=== PATIENT | male | born 1995 | race Caucasian/White ===

== ENCOUNTER 2017-08-06 19:28 | Emergency (ER) | payer BC, OTHER ==
--- NOTE | 2017-08-06 19:37 | PDOC ---
History of Present Illness - History of Present Illness Initial Comments: 08/06/17 20:04 22 y/o M with no PMHx presents to the ED with a left thumb bleeding for an hour. 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 Patient reports putting pressure at the site and wrapping it in gauze, but the bleeding hasnt stopped. Patient has no other complaints. PAST MEDICAL HISTORY: no significant history PAST SURGICAL HISTORY: no significant history FAMILY HISTORY: no pertinent history SOCIAL HISTORY: Pt lives with family and is employed. MEDICATIONS: reviewed ALLERGIES: As per nursing notes Review of Systems: General: No fevers or chills, no weakness, no weight loss HEENT: No change in vision. No sore throat,. No ear pain CardioVascular: No chest pain or shortness of breath Respiratory: No cough, or wheezing. Gastrointestinal: no nausea, vomiting, diarrhea or constipation, No rectal bleeding Genitourinary: No dysuria, hematuria, or frequency Musculoskeletal: No joint or muscle pain or swelling Neurologic: No headache, vertigo, dizziness or loss of consciousness Psychiatric: No depression Skin: (+) left thumb skin avulsion. No rashes or easy bruising Endocrine: No increased thirst or abnormal weight change Allergic: No skin or latex allergy All other systems reviewed and normal Physical Exam: GENERAL: The patient is awake, alert, and fully oriented, in no acute distress. HEAD: Normal with no signs of trauma. EYES: Pupils equal, round and reactive to light, extraocular movements intact, sclera anicteric, conjunctiva clear. EXTREMITIES: Normal range of motion, no edema. NEUROLOGICAL: Normal speech, normal gait. PSYCH: Normal mood, normal affect. SKIN: Approximately avulsion of the skin of the tip of the thumb. Warm, Dry, normal turgor, no rashes or lesions noted. <Mindi Camacho - Last Filed: 08/06/17 20:04> - General History Source: Patient Exam Limitations: No Limitations - History of Present Illness Initial Comments: 08/06/17 22:08 A portion of this note was documented by scribe services under my direction. I have reviewed the details of the note, within reason, and agree with the documentation. The case summary and management plan written by me. Assessment and plan: This is a 22-year-old male who comes in status post avulsion of the tip of his thumb when he was cutting something and accidentally cut the tip of his thumb. Area was still bleeding so Surgicel and a bulky dressing were applied to the thumb. Patient's tetanus was up to date. Patient discharged will follow-up with primary care doctor as needed <Areli Concepcion I - Last Filed: 08/06/17 22:10> - General Chief Complaint: Laceration Stated Complaint: LH 1ST FINGER LAC Time Seen by Provider: 08/06/17 19:37 Past History <Mindi Camacho - Last Filed: 08/06/17 20:04> - Past Medical History Other medical history: DENIES - Immunization History Immunization Up to Date: Yes - Suicide/Smoking/Psychosocial Hx Smoking History: Current some day smoker Have you smoked in the past 12 months: Yes Number of Cigarettes Smoked Daily: 2 Cigars Per Day: 0 Information on smoking cessation initiated: Yes 'Breaking Loose' booklet given: 12/14/15 Hx Alcohol Use: Yes Drug/Substance Use Hx: No Substance Use Type: Alcohol, Marijuana <Areli Concepcion I - Last Filed: 08/06/17 22:10> - Past Medical History Allergies/Adverse Reactions: Allergies Allergy/AdvReac Type Severity Reaction Status Date / Time No Known Allergies Allergy Verified 12/14/15 12:15 Home Medications: Ambulatory Orders NK [No Known Home Medication] 08/06/17 *Physical Exam - Vital Signs Last Vital Signs Temp Pulse Resp BP Pulse Ox 99 F 83 16 130/87 97 08/06/17 19:30 08/06/17 19:30 08/06/17 19:30 08/06/17 19:30 08/06/17 19:30 <Mindi Camacho - Last Filed: 08/06/17 20:04> *DC/Admit/Observation/Transfer - Attestations Scribe Attestion: 08/06/17 20:04 Documentation prepared by Mindi Camacho, acting as medical receptionist biller for Areli Concepcion MD. <Mindi Camacho - Last Filed: 08/06/17 20:04> - Discharge Dispostion Admit: No <Areli Concepcion I - Last Filed: 08/06/17 22:10> Diagnosis at time of Disposition: Thumb laceration Qualifiers: Damage to nail status: without damage Foreign body presence: without foreign body Laterality: left - Discharge Dispostion Disposition: HOME Condition at time of disposition: Stable - Patient Instructions Additional Instructions: The the bulky dressing in place until tomorrow morning. By morning he can remove the bulky dressing applied some bacitracin to the tip of the finger and a Band-Aid. Keep the finger dry for 72 hours wear gloves at work do not get it wet. Return to the emergency department immediately with ANY new, persistent or worsening symptoms. Continue any medications as previously prescribed by your physician. You should follow up with your primary doctor as soon as possible regarding today's emergency department visit. . Please make sure your doctor reviews the results of your emergency evaluation. Thank you for coming to the Emergency Department today for your care. It was a pleasure to see you today. Please note that your evaluation is INCOMPLETE until you follow-up with your doctor.
[2017-08-06 19:50] VITALS: BP 130/87; PULSE 83; TEMP 99; BMI 20.3
== END 2017-08-06 20:12 | disposition home or self-care (01) ==
LOC: FER 19:28
DX: S61.012A Laceration without foreign body of left thumb without damage to nail, initial encounter (principal); W26.0XXA Contact with knife, initial encounter; Y93.G1 Activity, food preparation and clean up; Y92.511 Restaurant or cafe as the place of occurrence of the external cause; Y99.0 Civilian activity done for income or pay; F17.210 Nicotine dependence, cigarettes, uncomplicated
CPT/HCPCS: 99282-25

== ENCOUNTER 2017-08-31 00:48 | Inpatient (IN) | payer BC, OTHER ==
--- NOTE | 2017-08-31 01:12 | HP ---
COWS - Scale Resting Pulse: 1= [place] 81-100 Sweatin=Flushed/Facial Moisture Restless Observation: 1= Difficult to Sit Still Pupil Size: 1= Pupils >than Normal Bone or Joint Aches: 2= Severe Diffuse Aches Runny Nose/ Eye Tearin= Runny Nose/Eyes GI Upset > 30mins: 2= Nausea/Diarrhea Tremor Observation: 2= Slight Tremor Visible Yawning Observation: 1= 1-2x During Session Anxiety or Irritability: 4=Extreme Anxiety Goose Flesh Skin: 0=Smooth Skin COWS Score: 18 CIWA Score - CIWA Score Nausea/Vomitin-No Nausea/No Vomiting Muscle Tremors: 4-Moderate,w/Arms Extend Anxiety: 4-Mod. Anxious/Guarded Agitation: 3 Paroxysmal Sweats: 3 Orientation: 0-Oriented Tacttile Disturbances: 3-Moderate Itch/Numb/Burn Auditory Disturbances: 0-None Visual Disturbances: 0-None Headache: 0-None Present CIWA-Ar Total Score: 17 Admission ROS BHS - HPI Chief Complaint: Alcohol and opoid withdrawal symptoms Allergies/Adverse Reactions: Allergies Allergy/AdvReac Type Severity Reaction Status Date / Time No Known Allergies Allergy Verified 08/31/17 01:06 History of Present Illness: 22 years old male with long history of alcohol and opioid dependence is admitted for detox. He reports longest clean time of 5 months and that his admission is mandated by [facility]. This is his first drug treatment. Exam Limitations: No Limitations - Ebola screening Have you traveled outside of the country in the last 21 days: No Have you had contact with anyone from an Ebola affected area: No Have you been sick,other than usual withdrawal symptoms: No Do you have a fever: No - Review of Systems Constitutional: Chills, Loss of Appetite, Changes in sleep, Unintentional Wgt. Loss EENT: reports: Nose Congestion Respiratory: reports: Shortness of Breath Cardiac: reports: No Symptoms Reported GI: reports: Diarrhea, Nausea, Poor Appetite, Poor Fluid Intake : reports: Frequency Musculoskeletal: reports: No Symptoms Reported Integumentary: reports: Other (superficial abrasions to both hands) Neuro: reports: No Symptoms reported Endocrine: reports: No Symptoms Reported Hematology: reports: No Symptoms Reported Psychiatric: reports: Orientated x3, Anxious, Depressed Other Systems: Reviewed and Negative Patient History - Patient Medical History Hx Anemia: No Hx Asthma: No Hx Chronic Obstructive Pulmonary Disease (COPD): No Hx Cancer: No Hx Cardiac Disorders: No Hx Congestive Heart Failure: No Hx Hypertension: No Hx Hypercholesterolemia: No Hx Pacemaker: No HX Cerebrovascular Accident: No Hx Seizures: No Hx Dementia: No Hx Diabetes: No Hx Gastrointestinal Disorders: No Hx Liver Disease: No Hx Genitourinary Disorders: No Hx Sexually Transmitted Disorders: No Hx Renal Disease (ESRD): No Hx Thyroid Disease: No Hx Human Immunodeficiency Virus (HIV): No Hx Hepatitis C: No Hx Depression: Yes (No treatment) Hx Suicide Attempt: No (presently denies suicidal and homicidal thoughts) Hx Bipolar Disorder: No Hx Schizophrenia: No Other Medical History: ADHD, ANXIETY DISORDER - Patient Surgical History Past Surgical History: No - PPD History Previous Implant?: Yes Documented Results: Negative w/o proof Implanted On Prior [facility] Admission?: No PPD to be Administered?: Yes - Reproductive History Patient is a Female of Child Bearing Age (11 -55 yrs old): No (MALE) - Smoking Cessation Smoking history: Current some day smoker Have you smoked in the past 12 months: Yes Aproximately how many cigarettes per day: 4 Cigars Per Day: 0 Hx Chewing Tobacco Use: No Initiated information on smoking cessation: Yes 'Breaking Loose' booklet given: 08/31/17 - Substance & Tx. History Hx Alcohol Use: Yes Hx Substance Use: Yes Substance Use Type: Alcohol, Marijuana, Opiates (T) Hx Substance Use Treatment: No - Substances Abused THC Route: Smoking Frequency: Daily Amount used: 3 blunts Age of first use: 17 Date of Last Use: 08/30/17 PERCOCET Route: Oral Frequency: Daily Amount used: 30mg Age of first use: 20 Date of Last Use: 08/30/17 HENNESY LIQUOR Route: Oral Frequency: Daily Amount used: 1 pint Age of first use: 17 Date of Last Use: 08/30/17 Family Disease History - Family Disease History Family Disease History: Diabetes: Grandparent (Grandfather, ), Heart Disease: Grandparent, Other: Father (Drugs, HTN), Mother (Alcoholic, HTN) Admission Physical Exam [facility] - Physical General Appearance: Yes: Moderate Distress, Irritable, Sweating, Anxious HEENTM: Yes: EOMI, JENNIFER, Other (Dry mucous membrane) Respiratory: Yes: Lungs Clear, Normal Breath Sounds, No Respiratory Distress Neck: Yes: Supple Breast: Yes: Breast Exam Deferred Cardiology: Yes: Regular Rhythm, Regular Rate, S1, S2 Abdominal: Yes: Normal Bowel Sounds, Soft Genitourinary: Yes: Within Normal Limits Back: Yes: Normal Inspection Musculoskeletal: Yes: Muscle Pain, Muscle weakness Extremities: Yes: Tremors, Other (tatoos to bilateral hands and superficial abrasions with erythema to both hands) Neurological: Yes: Fully Oriented, Alert, Normal Response Integumentary: Yes: Within Normal Limits, Dry Lymphatic: Yes: Within Normal Limits - Diagnostic (1) Alcohol dependence with uncomplicated withdrawal Current Visit: Yes Status: Acute (2) Uncomplicated opioid dependence Current Visit: Yes Status: Acute (3) Nicotine dependence Current Visit: Yes Status: Acute Qualifiers: Nicotine product type: cigarettes Cleared for Admission S - Detox or Rehab [facility] Level of Care: Medically Managed Detox Regimen/Protocol: Methadone/Librium S Breath Alcohol Content Breath Alcohol Content: 0.029 Vital Signs - Vital Signs Vital Signs Refused: No Temperature: 97.9 F Temperature Source: Oral Pulse Rate: 82 Respiratory Rate: 16 Blood Pressure: 121/72 BP Location: Left Arm Blood Pressure Position: Sitting - Height Height: 5 ft 7 in - Weight Weight: 131 lb Weight Measurement Method: Standing Scale Body Mass Index (BMI): 20.5 - Bowel Function Bowel Movement: Yes Urine Drug Screen - Test Device Lot Number: [id number] Expiration Date: 05/16/19 - Control Is Test Valid: Yes - Results Drug Screen Negative: No Urine Drug Screen Results: THC-Marijuana, OXY-Oxycodone
[2017-08-31] MEDS ORDERED: MAGNESIUM CITRATE 300 ML BOTTLE PO PRN (01:33)
[2017-08-31] MEDS ORDERED: METHADONE HCL 10 MG TABLET (FOR DETOX USE ONLY) PO ONE ×3 (01:33→22:00)
[2017-08-31] MEDS ORDERED: MAGNESIUM HYDROX 2400MG/30ML ORAL SUSPENSION 30 ML CUP PO PRN (01:33)
[2017-08-31] MEDS ORDERED: LOPERAMIDE HCL 2 MG CAPSULE PO PRN (01:33)
[2017-08-31] MEDS ORDERED: MAG HYDROX/AL HYDROX/SIMETH 30 ML UNIT-DOSE CUP PO PRN (01:33)
[2017-08-31] MEDS ORDERED: P-EPHED 60MG/TRIPROLIDI 2.5MG TABLET PO PRN (01:33)
[2017-08-31] MEDS ORDERED: MENTHOL/PHENOL 1 EACH UD MM PRN (01:33)
[2017-08-31] MEDS ORDERED: guaiFENesin/D-METHORPHAN HB 10 ML UNIT-DOSE CUPS PO PRN (01:33)
[2017-08-31] MEDS ORDERED: chlordiazePOXIDE HCL 25 MG CAPSULE PO PRN (01:33)
[2017-08-31 01:59] VITALS: BMI 20.5
[2017-08-31] MEDS: chlordiazePOXIDE HCL 25 MG CAPSULE PO SCH ×4 (05:26→22:06)
[2017-08-31] MEDS: BACITRACIN 15 GM TUBE TOPICAL OINTMENT TP SCH ×2 (05:27→10:02)
[2017-08-31] MEDS: PRENATAL VITAMINS W/ FOLIC ACID TABLET (FP) PO SCH (10:03)
[2017-08-31] MEDS: NICOTINE 14 MG/24 HOURS TOPICAL PATCH TD SCH (10:03)
[2017-08-31 10:08] LABS: ALBUMIN 3.8 g/dl (3.4-5.0); ANION GAP 7 (8-16); CALCIUM 8.5 mg/dL (8.5-10.1); CO2 30 mmol/L (21-32); GLUCOSE,RANDOM 91 mg/dL (74-106); MCH 28.3 pg (25.7-33.7); MCHC 33.2 g/dl (32.0-35.9); MEAN CELL VOLUME 85.3 fl (80-96); MEAN PLT VOLUME 8.3 fl (7.5-11.1); PLATELET COUNT 225 K/MM3 (134-434)
--- NOTE | 2017-08-31 10:11 | PN ---
[facility] Progress Note Note: PT WAS ADMITTED EARLIER TODAY. RESTING IN BED. ALERT O X3. NAD. BUT C/O SWEATS/ TREMORS/INTERMITTENT SLEEP. CONTINUE DETOX/30 MIN MONITOR.
[2017-08-31 10:14] LABS: ALK PHOS 122 U/L (45-117); BILIRUBIN,TOTAL 0.8 mg/dL (0.2-1.0); CREATININE 0.9 mg/dL (0.7-1.3); SGOT/AST 10 U/L (15-37); SGPT/ALT 16 U/L (12-78); TOT PROT 6.5 g/dl (6.4-8.2)
[2017-08-31] MEDS: NICOTINE POLACRILEX 2 MG GUM BC PRN (12:41)
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
[2017-08-31] MEDS: BACITRACIN 0.9 GM PACKET TP SCH (22:06)
[2017-08-31] MEDS: THIAMINE HCL 100 MG TABLET (FP) PO SCH (22:06)
[2017-08-31] MEDS: ZOLPIDEM TARTRATE 10 MG TABLET (PARK CARE ONLY) PO PRN (22:07)
[2017-09-01] MEDS: chlordiazePOXIDE HCL 25 MG CAPSULE PO SCH ×4 (05:02→22:09)
[2017-09-01] MEDS ORDERED: METHADONE HCL 5 MG TABLET (FOR DETOX USE ONLY) PO SCH (10:00)
[2017-09-01] MEDS: PRENATAL VITAMINS W/ FOLIC ACID TABLET (FP) PO SCH (10:03)
[2017-09-01] MEDS: BACITRACIN 0.9 GM PACKET TP SCH ×2 (10:03→22:09)
[2017-09-01] MEDS: NICOTINE 14 MG/24 HOURS TOPICAL PATCH TD SCH ×2 (10:04→12:27)
--- NOTE | 2017-09-01 10:20 | PN ---
[facility] CIWA - CIWA Score Nausea/Vomitin-No Nausea/No Vomiting Muscle Tremors: 4-Moderate,w/Arms Extend Anxiety: 4-Mod. Anxious/Guarded Agitation: 4-Moderately Restless Paroxysmal Sweats: 1-Minimal Palms Moist Orientation: 0-Oriented Tacttile Disturbances: 3-Moderate Itch/Numb/Burn Auditory Disturbances: 0-None Visual Disturbances: 0-None Headache: 0-None Present CIWA-Ar Total Score: 16 S COWS - Scale Resting Pulse: 0= [place] 80 or Below Sweatin= Chills/Flushing Restless Observation: 3= Extraneous Movement Pupil Size: 0= Normal to Room Light Bone or Joint Aches: 4=Acute Joint/Muscle Pain Runny Nose/ Eye Tearin= Nasal Congestion GI Upset > 30mins: 1= Stomach Cramp Tremor Observation of Outstretched Hands: 1= Tremor [place], Not Seen Yawning Observation: 1= 1-2x During Session Anxiety or Irritability: 2=Irritable/Anxious Goose Flesh Skin: 0=Smooth Skin COWS Score: 14 [facility] Progress Note (SOAP) Subjective: ANXIETY,SWEATS/CHILLS,DIARRHEA. Objective: 09/01/17 10:19 Vital Signs Temperature 96.7 F L 09/01/17 09:14 Pulse Rate 61 09/01/17 09:14 Respiratory Rate 18 09/01/17 09:14 Blood Pressure 103/60 09/01/17 09:14 O2 Sat by Pulse Oximetry (%) Laboratory Last Values WBC 9.0 K/mm3 (4.0-10.0) 08/31/17 07:00 RBC 5.15 M/mm3 (4.00-5.60) 08/31/17 07:00 Hgb 14.6 GM/dL (11.7-16.9) 08/31/17 07:00 Hct 44.0 % (35.4-49) 08/31/17 07:00 MCV 85.3 fl (80-96) 08/31/17 07:00 MCH 28.3 pg (25.7-33.7) 08/31/17 07:00 MCHC 33.2 g/dl (32.0-35.9) 08/31/17 07:00 RDW 14.0 % (11.9-15.9) 08/31/17 07:00 Plt Count 225 K/MM3 (134-434) 08/31/17 07:00 MPV 8.3 fl (7.5-11.1) 08/31/17 07:00 Sodium 142 mmol/L (136-145) 08/31/17 07:00 Potassium 3.8 mmol/L (3.5-5.1) 08/31/17 07:00 Chloride 105 mmol/L (98-107) 08/31/17 07:00 Carbon Dioxide 30 mmol/L (21-32) 08/31/17 07:00 Anion Gap 7 (8-16) L 08/31/17 07:00 BUN 10 mg/dL (7-18) 08/31/17 07:00 Creatinine 0.9 mg/dL (0.7-1.3) 08/31/17 07:00 Creat Clearance w eGFR > 60 (>60) 08/31/17 07:00 Random Glucose 91 mg/dL (74-106) 08/31/17 07:00 Calcium 8.5 mg/dL (8.5-10.1) 08/31/17 07:00 Total Bilirubin 0.8 mg/dL (0.2-1.0) 08/31/17 07:00 AST 10 U/L (15-37) L 08/31/17 07:00 ALT 16 U/L (12-78) 08/31/17 07:00 Alkaline Phosphatase 122 U/L (45-117) H 08/31/17 07:00 Total Protein 6.5 g/dl (6.4-8.2) 08/31/17 07:00 Albumin 3.8 g/dl (3.4-5.0) 08/31/17 07:00 Urine Color Cancelled 08/31/17 21:30 Urine Appearance Cancelled 08/31/17 21:30 Urine pH Cancelled 08/31/17 21:30 Ur Specific [place] Cancelled 08/31/17 21:30 Urine Protein Cancelled 08/31/17 21:30 Urine Glucose (UA) Cancelled 08/31/17 21:30 Urine Ketones Cancelled 08/31/17 21:30 Urine Blood Cancelled 08/31/17 21:30 Urine Nitrite Cancelled 08/31/17 21:30 Urine Bilirubin Cancelled 08/31/17 21:30 Urine Urobilinogen Cancelled 08/31/17 21:30 Ur Leukocyte Esterase Cancelled 08/31/17 21:30 RPR Titer Nonreactive (NONREACTIVE) 08/31/17 07:00 Hepatitis C Antibody <0.1 s/co ratio (0.0-0.9) 08/31/17 07:00 UA PENDING Assessment: 09/01/17 10:20 WITHDRAWAL SX Plan: CONTINUE DETOX
--- NOTE | 2017-09-01 12:13 | EKG ---
Test Reason : Blood Pressure : / mmHG Vent. Rate : 074 BPM Atrial Rate : 074 BPM P-R Int : 140 ms QRS Dur : 094 ms QT Int : 358 ms P-R-T Axes : 067 081 057 degrees QTc Int : 397 ms NORMAL SINUS RHYTHM WITH SINUS ARRHYTHMIA NORMAL ECG NO PREVIOUS ECGS AVAILABLE Confirmed by EMILY ALBA MD ([id number]) on 09/01/2017 12:13:22 PM Referred By: Confirmed By:EMILY ALBA MD
[2017-09-01] MEDS: NICOTINE POLACRILEX 2 MG GUM BC PRN ×2 (17:15→20:41)
[2017-09-01] MEDS: THIAMINE HCL 100 MG TABLET (FP) PO SCH (22:09)
[2017-09-01] MEDS: ZOLPIDEM TARTRATE 10 MG TABLET (PARK CARE ONLY) PO PRN (22:09)
[2017-09-01] MEDS: ACETAMINOPHEN 325 MG TABLET (FP) PO PRN (22:10)
[2017-09-01 22:30] LABS: URINE APPEARANCE CLEAR; URINE BILIRUBIN NEGATIVE (NEGATIVE); URINE BLOOD NEGATIVE (NEGATIVE); URINE COLOR STRAW; URINE GLUCOSE (UA) NEGATIVE (NEGATIVE); URINE KETONE NEGATIVE (NEGATIVE); URINE NITRITE NEGATIVE (NEGATIVE); URINE PROTEIN NEGATIVE (NEGATIVE); URINE UROBILINOGEN NEGATIVE mg/dL (0.2-1.0)
[2017-09-02] MEDS: NICOTINE POLACRILEX 2 MG GUM BC PRN ×5 (03:26→22:39)
[2017-09-02] MEDS: hydrOXYzine PAMOATE 50 MG CAPSULE (FP) PO PRN (03:28)
[2017-09-02] MEDS: chlordiazePOXIDE 5 MG CAPSULE PO SCH ×4 (04:57→22:07)
[2017-09-02] MEDS: NICOTINE 14 MG/24 HOURS TOPICAL PATCH TD SCH (10:04)
[2017-09-02] MEDS: METHADONE HCL 5 MG TABLET (FOR DETOX USE ONLY) PO SCH (10:04)
[2017-09-02] MEDS: PRENATAL VITAMINS W/ FOLIC ACID TABLET (FP) PO SCH (10:04)
[2017-09-02] MEDS: BACITRACIN 0.9 GM PACKET TP SCH ×2 (10:04→22:07)
[2017-09-02 11:06] LABS: URINE LEUK ESTERASE TRACE (NEGATIVE)
[2017-09-02 13:33] LABS: URINE RBC 0-2 /hpf (0-3)
[2017-09-02 13:34] LABS: URINE BACTERIA NONE SEEN /hpf (NEGATIVE)
--- NOTE | 2017-09-02 13:56 | PN ---
S CIWA - CIWA Score Nausea/Vomitin Muscle Tremors: 3 Anxiety: 4-Mod. Anxious/Guarded Agitation: 1-Slight > Activity Paroxysmal Sweats: No Perspiration Orientation: 2-Disoriented Date<2 days Tacttile Disturbances: 0-None Auditory Disturbances: 1-Very Mild Visual Disturbances: 2-Mild Sensitivity Headache: 2-Mild CIWA-Ar Total Score: 18 BHS COWS - Scale Resting Pulse: 0= [place] 80 or Below Sweatin=Flushed/Facial Moisture Restless Observation: 1= Difficult to Sit Still Pupil Size: 0= Normal to Room Light Bone or Joint Aches: 2= Severe Diffuse Aches Runny Nose/ Eye Tearin= None GI Upset > 30mins: 2= Nausea/Diarrhea Tremor Observation of Outstretched Hands: 2= Slight Tremor Visible Yawning Observation: 1= 1-2x During Session Anxiety or Irritability: 2=Irritable/Anxious Goose Flesh Skin: 3=[place] COWS Score: 15 S Progress Note (SOAP) Subjective: Stomach Cramping, Nausea, Body Aches, H/A, Anxious, Tremors. Objective: PT. A & O X 3, OBSERVED AMBULATING ON UNIT. NO ACUTE DISTRESS. 09/02/17 13:55 Vital Signs Temperature 98.3 F 09/02/17 13:10 Pulse Rate 67 09/02/17 13:10 Respiratory Rate 20 09/02/17 13:10 Blood Pressure 124/87 09/02/17 13:10 O2 Sat by Pulse Oximetry (%) Laboratory Tests 08/31/17 08/31/17 08/31/17 07:00 07:00 07:00 WBC 9.0 RBC 5.15 Hgb 14.6 Hct 44.0 MCV 85.3 MCH 28.3 MCHC 33.2 RDW 14.0 Plt Count 225 MPV 8.3 Sodium 142 Potassium 3.8 Chloride 105 Carbon Dioxide 30 Anion Gap 7 L BUN 10 Creatinine 0.9 Creat Clearance w eGFR > 60 Random Glucose 91 Calcium 8.5 Total Bilirubin 0.8 AST 10 L ALT 16 Alkaline Phosphatase 122 H Total Protein 6.5 Albumin 3.8 Urine Color Urine Appearance Urine pH Ur Specific [place] Urine Protein Urine Glucose (UA) Urine Ketones Urine Blood Urine Nitrite Urine Bilirubin Urine Urobilinogen Ur Leukocyte Esterase Urine RBC Urine WBC Ur Epithelial Cells Urine Bacteria RPR Titer Hepatitis C Antibody <0.1 08/31/17 08/31/17 09/01/17 07:00 21:30 16:20 WBC RBC Hgb Hct MCV MCH MCHC RDW Plt Count MPV Sodium Potassium Chloride Carbon Dioxide Anion Gap BUN Creatinine Creat Clearance w eGFR Random Glucose Calcium Total Bilirubin AST ALT Alkaline Phosphatase Total Protein Albumin Urine Color Cancelled Straw Urine Appearance Cancelled Clear Urine pH Cancelled 5.0 Ur Specific [place] Cancelled 1.009 Urine Protein Cancelled Negative Urine Glucose (UA) Cancelled Negative Urine Ketones Cancelled Negative Urine Blood Cancelled Negative Urine Nitrite Cancelled Negative Urine Bilirubin Cancelled Negative Urine Urobilinogen Cancelled Negative Ur Leukocyte Esterase Cancelled Trace H Urine RBC 0-2 Urine WBC 1-3 Ur Epithelial Cells None seen Urine Bacteria None seen RPR Titer Nonreactive Hepatitis C Antibody LABS NOTED. Assessment: 09/02/17 13:55 WITHDRAWAL SYMPTOMS. Plan: CONTINUE DETOX. PRN FLEXERIL PO FOR BODY ACHES/ MUSCLE SPASMS. INCREASE DAILY PO FLUID INTAKE.
[2017-09-02] MEDS: IBUPROFEN 400 MG TABLET (FP) PO PRN (18:56)
[2017-09-02] MEDS: THIAMINE HCL 100 MG TABLET (FP) PO SCH (22:07)
[2017-09-02] MEDS: CYCLOBENZAPRINE HCL 10 MG TABLET (FP) PO PRN (22:07)
[2017-09-02] MEDS: ZOLPIDEM TARTRATE 10 MG TABLET (PARK CARE ONLY) PO PRN (22:07)
[2017-09-03] MEDS: NICOTINE POLACRILEX 2 MG GUM BC PRN ×5 (00:48→20:59)
[2017-09-03] MEDS: chlordiazePOXIDE HCL 10 MG CAPSULE PO SCH ×4 (05:10→22:02)
[2017-09-03] MEDS: CYCLOBENZAPRINE HCL 10 MG TABLET (FP) PO PRN ×2 (10:10→22:04)
[2017-09-03] MEDS: PRENATAL VITAMINS W/ FOLIC ACID TABLET (FP) PO SCH (10:11)
[2017-09-03] MEDS: BACITRACIN 0.9 GM PACKET TP SCH ×2 (10:11→22:02)
[2017-09-03] MEDS: NICOTINE 14 MG/24 HOURS TOPICAL PATCH TD SCH (10:11)
[2017-09-03] MEDS: METHADONE HCL 5 MG TABLET (FOR DETOX USE ONLY) PO SCH (10:11)
[2017-09-03] MEDS: IBUPROFEN 400 MG TABLET (FP) PO PRN ×2 (11:00→23:14)
--- NOTE | 2017-09-03 12:35 | PN ---
[facility] Progress Note (SOAP) Subjective: Anxious, Sweating, Interrupted Sleep, Body Aches. Objective: PT. A & O X 3, OBSERVED AMBULATING ON UNIT. NO ACUTE DISTRESS. 09/03/17 12:34 Vital Signs Temperature 97.9 F 09/03/17 10:17 Pulse Rate 74 09/03/17 10:17 Respiratory Rate 18 09/03/17 10:17 Blood Pressure 125/75 09/03/17 10:17 O2 Sat by Pulse Oximetry (%) Laboratory Tests 08/31/17 08/31/17 08/31/17 07:00 07:00 07:00 WBC 9.0 RBC 5.15 Hgb 14.6 Hct 44.0 MCV 85.3 MCH 28.3 MCHC 33.2 RDW 14.0 Plt Count 225 MPV 8.3 Sodium 142 Potassium 3.8 Chloride 105 Carbon Dioxide 30 Anion Gap 7 L BUN 10 Creatinine 0.9 Creat Clearance w eGFR > 60 Random Glucose 91 Calcium 8.5 Total Bilirubin 0.8 AST 10 L ALT 16 Alkaline Phosphatase 122 H Total Protein 6.5 Albumin 3.8 Urine Color Urine Appearance Urine pH Ur Specific [place] Urine Protein Urine Glucose (UA) Urine Ketones Urine Blood Urine Nitrite Urine Bilirubin Urine Urobilinogen Ur Leukocyte Esterase Urine RBC Urine WBC Ur Epithelial Cells Urine Bacteria RPR Titer Hepatitis C Antibody <0.1 08/31/17 08/31/17 09/01/17 07:00 21:30 16:20 WBC RBC Hgb Hct MCV MCH MCHC RDW Plt Count MPV Sodium Potassium Chloride Carbon Dioxide Anion Gap BUN Creatinine Creat Clearance w eGFR Random Glucose Calcium Total Bilirubin AST ALT Alkaline Phosphatase Total Protein Albumin Urine Color Cancelled Straw Urine Appearance Cancelled Clear Urine pH Cancelled 5.0 Ur Specific [place] Cancelled 1.009 Urine Protein Cancelled Negative Urine Glucose (UA) Cancelled Negative Urine Ketones Cancelled Negative Urine Blood Cancelled Negative Urine Nitrite Cancelled Negative Urine Bilirubin Cancelled Negative Urine Urobilinogen Cancelled Negative Ur Leukocyte Esterase Cancelled Trace H Urine RBC 0-2 Urine WBC 1-3 Ur Epithelial Cells None seen Urine Bacteria None seen RPR Titer Nonreactive Hepatitis C Antibody LABS NOTED. Assessment: 09/03/17 12:34 WITHDRAWAL SYMPTOMS. Plan: CONTINUE DETOX. INCREASE DAILY PO FLUID INTAKE.
[2017-09-03] MEDS: THIAMINE HCL 100 MG TABLET (FP) PO SCH (22:02)
[2017-09-04] MEDS: IBUPROFEN 400 MG TABLET (FP) PO PRN ×3 (08:24→23:32)
[2017-09-04] MEDS: CYCLOBENZAPRINE HCL 10 MG TABLET (FP) PO PRN ×2 (08:24→18:19)
[2017-09-04] MEDS ORDERED: TETRAHYDROZOLINE HCL 1 DROP DROPS OU PRN (08:54)
[2017-09-04] MEDS ORDERED: METHADONE HCL 10 MG TABLET (FOR DETOX USE ONLY) PO SCH (10:00)
[2017-09-04] MEDS: NICOTINE 14 MG/24 HOURS TOPICAL PATCH TD SCH (10:07)
[2017-09-04] MEDS: NICOTINE POLACRILEX 2 MG GUM BC PRN ×4 (10:07→23:34)
[2017-09-04] MEDS: PRENATAL VITAMINS W/ FOLIC ACID TABLET (FP) PO SCH (10:07)
[2017-09-04] MEDS: BACITRACIN 0.9 GM PACKET TP SCH ×2 (10:07→22:07)
[2017-09-04] MEDS: ACETAMINOPHEN 325 MG TABLET (FP) PO PRN ×2 (10:08→21:07)
--- NOTE | 2017-09-04 12:16 | PN ---
[facility] Progress Note (SOAP) Subjective: Constipation, Sweating, H/A, Body Aches. Objective: PT. A & O X 3, OBSERVED AMBULATING ON UNIT. NO ACUTE DISTRESS. 09/04/17 12:14 Vital Signs Temperature 95.8 F L 09/04/17 09:24 Pulse Rate 66 09/04/17 09:24 Respiratory Rate 18 09/04/17 09:24 Blood Pressure 108/72 09/04/17 09:24 O2 Sat by Pulse Oximetry (%) Laboratory Tests 08/31/17 08/31/17 08/31/17 07:00 07:00 07:00 WBC 9.0 RBC 5.15 Hgb 14.6 Hct 44.0 MCV 85.3 MCH 28.3 MCHC 33.2 RDW 14.0 Plt Count 225 MPV 8.3 Sodium 142 Potassium 3.8 Chloride 105 Carbon Dioxide 30 Anion Gap 7 L BUN 10 Creatinine 0.9 Creat Clearance w eGFR > 60 Random Glucose 91 Calcium 8.5 Total Bilirubin 0.8 AST 10 L ALT 16 Alkaline Phosphatase 122 H Total Protein 6.5 Albumin 3.8 Urine Color Urine Appearance Urine pH Ur Specific [place] Urine Protein Urine Glucose (UA) Urine Ketones Urine Blood Urine Nitrite Urine Bilirubin Urine Urobilinogen Ur Leukocyte Esterase Urine RBC Urine WBC Ur Epithelial Cells Urine Bacteria RPR Titer Hepatitis C Antibody <0.1 08/31/17 08/31/17 09/01/17 07:00 21:30 16:20 WBC RBC Hgb Hct MCV MCH MCHC RDW Plt Count MPV Sodium Potassium Chloride Carbon Dioxide Anion Gap BUN Creatinine Creat Clearance w eGFR Random Glucose Calcium Total Bilirubin AST ALT Alkaline Phosphatase Total Protein Albumin Urine Color Cancelled Straw Urine Appearance Cancelled Clear Urine pH Cancelled 5.0 Ur Specific [place] Cancelled 1.009 Urine Protein Cancelled Negative Urine Glucose (UA) Cancelled Negative Urine Ketones Cancelled Negative Urine Blood Cancelled Negative Urine Nitrite Cancelled Negative Urine Bilirubin Cancelled Negative Urine Urobilinogen Cancelled Negative Ur Leukocyte Esterase Cancelled Trace H Urine RBC 0-2 Urine WBC 1-3 Ur Epithelial Cells None seen Urine Bacteria None seen RPR Titer Nonreactive Hepatitis C Antibody LABS NOTED. Assessment: 09/04/17 12:14 WITHDRAWAL SYMPTOMS. Plan: CONTINUE DETOX. PRN MOM FOR CONSTIPATION. INCREASE DAILY PO FLUID INTAKE.
[2017-09-04] MEDS: THIAMINE HCL 100 MG TABLET (FP) PO SCH (22:06)
[2017-09-04] MEDS: hydrOXYzine PAMOATE 50 MG CAPSULE (FP) PO PRN (22:07)
[2017-09-05] MEDS: CYCLOBENZAPRINE HCL 10 MG TABLET (FP) PO PRN (05:09)
[2017-09-05] MEDS ORDERED: METHADONE HCL 5 MG TABLET (FOR DETOX USE ONLY) PO SCH (06:00)
[2017-09-05 06:35] VITALS: BP 103/56; PULSE 59; TEMP 98.2
[2017-09-05] MEDS: IBUPROFEN 400 MG TABLET (FP) PO PRN (08:05)
[2017-09-05] MEDS: PRENATAL VITAMINS W/ FOLIC ACID TABLET (FP) PO SCH (09:12)
[2017-09-05] MEDS: ACETAMINOPHEN 325 MG TABLET (FP) PO PRN (09:12)
--- NOTE | 2017-09-05 09:58 | DS ---
[facility] Detox Discharge Summary Admission Date: 08/31/17 Discharge Date: 09/05/17 - History Present History: Alcohol Dependence, Cannabis Dependence, Opioid Dependence Pertinent Past History: Denies - Physical Exam Results Vital Signs: Vital Signs Temperature 98.2 F 09/05/17 06:34 Pulse Rate 59 L 09/05/17 06:34 Respiratory Rate 18 09/05/17 06:34 Blood Pressure 103/56 09/05/17 06:34 O2 Sat by Pulse Oximetry (%) Pertinent Admission Physical Exam Findings: Withdrawal symptoms Laboratory Tests 08/31/17 08/31/17 08/31/17 07:00 07:00 07:00 WBC 9.0 RBC 5.15 Hgb 14.6 Hct 44.0 MCV 85.3 MCH 28.3 MCHC 33.2 RDW 14.0 Plt Count 225 MPV 8.3 Sodium 142 Potassium 3.8 Chloride 105 Carbon Dioxide 30 Anion Gap 7 L BUN 10 Creatinine 0.9 Creat Clearance w eGFR > 60 Random Glucose 91 Calcium 8.5 Total Bilirubin 0.8 AST 10 L ALT 16 Alkaline Phosphatase 122 H Total Protein 6.5 Albumin 3.8 Urine Color Urine Appearance Urine pH Ur Specific [place] Urine Protein Urine Glucose (UA) Urine Ketones Urine Blood Urine Nitrite Urine Bilirubin Urine Urobilinogen Ur Leukocyte Esterase Urine RBC Urine WBC Ur Epithelial Cells Urine Bacteria RPR Titer Hepatitis C Antibody <0.1 08/31/17 08/31/17 09/01/17 07:00 21:30 16:20 WBC RBC Hgb Hct MCV MCH MCHC RDW Plt Count MPV Sodium Potassium Chloride Carbon Dioxide Anion Gap BUN Creatinine Creat Clearance w eGFR Random Glucose Calcium Total Bilirubin AST ALT Alkaline Phosphatase Total Protein Albumin Urine Color Cancelled Straw Urine Appearance Cancelled Clear Urine pH Cancelled 5.0 Ur Specific [place] Cancelled 1.009 Urine Protein Cancelled Negative Urine Glucose (UA) Cancelled Negative Urine Ketones Cancelled Negative Urine Blood Cancelled Negative Urine Nitrite Cancelled Negative Urine Bilirubin Cancelled Negative Urine Urobilinogen Cancelled Negative Ur Leukocyte Esterase Cancelled Trace H Urine RBC 0-2 Urine WBC 1-3 Ur Epithelial Cells None seen Urine Bacteria None seen RPR Titer Nonreactive Hepatitis C Antibody Labs noted - Treatment Hospital Course: Detox Protocol Followed, Detoxed Safely, Responded well, Discharged Condition Good - Medication Discharge Medications: Ambulatory Orders NK [No Known Home Medication] 08/06/17 - Diagnosis (1) Marijuana dependence Current Visit: Yes Status: Chronic (2) Opioid dependence with intoxication, uncomplicated Current Visit: Yes Status: Acute (3) Anxiety Current Visit: Yes Status: Chronic (4) Depression Current Visit: Yes Status: Chronic (5) Alcohol dependence with uncomplicated withdrawal Current Visit: Yes Status: Acute (6) Nicotine dependence Current Visit: Yes Status: Chronic Qualifiers: Nicotine product type: cigarettes Substance use status: in withdrawal Qualified Code(s): F17.213 - Nicotine dependence, cigarettes, with withdrawal - AMA Did Patient Leave Against Medical Advice: No (F/U with your PCP in 1-2 weeks)
== END 2017-09-05 09:18 | disposition home or self-care (01) | DRG 897 ==
LOC: YASAS 00:48 → Y3N 00:53
PROVIDERS: ADMIT Internal Medicine; ATTEND Internal Medicine
PROC: HZ2ZZZZ Detoxification Services for Substance Abuse Treatment (ICD-10-PCS; principal; 2017-08-31)
DX: F11.23 Opioid dependence with withdrawal (principal); F10.230 Alcohol dependence with withdrawal, uncomplicated; F12.20 Cannabis dependence, uncomplicated; F17.213 Nicotine dependence, cigarettes, with withdrawal; F41.9 Anxiety disorder, unspecified; F32.9 Major depressive disorder, single episode, unspecified; F90.9 Attention-deficit hyperactivity disorder, unspecified type; G47.00 Insomnia, unspecified
CPT/HCPCS: 36415; 80053; 81003; 81015; 85027; 86593; 86803; 93005; 93010

== ENCOUNTER 2017-09-06 13:32 | Inpatient (IN) | payer BC ==
[2017-09-06 14:56] VITALS: BMI 20.5
[2017-09-06] MEDS ORDERED: MAG HYDROX/AL HYDROX/SIMETH 30 ML UNIT-DOSE CUP PO PRN (15:24)
[2017-09-06] MEDS ORDERED: LOPERAMIDE HCL 2 MG CAPSULE PO PRN (15:24)
[2017-09-06] MEDS ORDERED: hydrOXYzine PAMOATE 50 MG CAPSULE (FP) PO PRN (15:24)
[2017-09-06] MEDS ORDERED: IBUPROFEN 400 MG TABLET (FP) PO PRN (15:24)
[2017-09-06] MEDS ORDERED: P-EPHED 60MG/TRIPROLIDI 2.5MG TABLET PO PRN (15:24)
[2017-09-06] MEDS ORDERED: ACETAMINOPHEN 325 MG TABLET (FP) PO PRN (15:24)
[2017-09-06] MEDS ORDERED: MAGNESIUM HYDROX 2400MG/30ML ORAL SUSPENSION 30 ML CUP PO PRN (15:24)
[2017-09-06] MEDS ORDERED: guaiFENesin/D-METHORPHAN HB 10 ML UNIT-DOSE CUPS PO PRN (15:24)
[2017-09-06] MEDS ORDERED: MENTHOL/PHENOL 1 EACH UD MM PRN (15:24)
[2017-09-06] MEDS ORDERED: MAGNESIUM CITRATE 300 ML BOTTLE PO PRN (15:24)
[2017-09-06] MEDS ORDERED: NICOTINE POLACRILEX 2 MG GUM BC PRN (15:24)
--- NOTE | 2017-09-06 15:24 | HP ---
[facility] Rehab Assess/Revision - Admission History Admitted to Rehab from: [facility] - Vital signs Vital Signs: Vital Signs Period Temp Pulse Resp BP Sys/[place] Pulse Ox Last 24 Hr 97 F 78 20 120/73 - Findings Detox History & Physical reviewed: Yes Concur with findings: Yes Inpatient Rehab Admission - Initial Determination Are CD services needed?: Yes Free of communicable disease: Yes - Rehab Admission Criteria Patient is meeting Inpatient Rehab admission criteria:: Yes
[2017-09-06] MEDS: THIAMINE HCL 100 MG TABLET (FP) PO SCH (21:58)
[2017-09-06] MEDS: diphenhydrAMINE HCL 50 MG CAPSULE PO PRN (21:58)
[2017-09-06] MEDS: CYCLOBENZAPRINE HCL 10 MG TABLET (FP) PO PRN (21:58)
[2017-09-07 01:29] LABS: URINE APPEARANCE CLEAR; URINE BILIRUBIN NEGATIVE (NEGATIVE); URINE BLOOD NEGATIVE (NEGATIVE); URINE COLOR STRAW; URINE GLUCOSE (UA) NEGATIVE (NEGATIVE); URINE KETONE NEGATIVE (NEGATIVE); URINE NITRITE NEGATIVE (NEGATIVE); URINE PROTEIN NEGATIVE (NEGATIVE); URINE UROBILINOGEN NEGATIVE mg/dL (0.2-1.0)
[2017-09-07 06:57] VITALS: TEMP 97.3
[2017-09-07] MEDS: PRENATAL VITAMINS W/ FOLIC ACID TABLET (FP) PO SCH (10:30)
[2017-09-07] MEDS: CYCLOBENZAPRINE HCL 10 MG TABLET (FP) PO PRN ×2 (10:31→21:22)
[2017-09-07 11:33] LABS: URINE LEUK ESTERASE Negative (NEGATIVE)
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
[2017-09-07] MEDS ORDERED: MIRTAZAPINE 15 MG TABLET (FP) PO SCH ×2 (15:00→22:00)
[2017-09-07] MEDS: THIAMINE HCL 100 MG TABLET (FP) PO SCH (21:22)
[2017-09-07] MEDS: diphenhydrAMINE HCL 50 MG CAPSULE PO PRN (22:48)
[2017-09-08 06:51] VITALS: BP 124/77; PULSE 78
--- NOTE | 2017-09-08 10:12 | PN ---
[facility] Progress Note Note: patient was discharged today, insurance denied authorization for treatment, patient is stable upon discharge, meds not provided because patient refused to continue remeron.
[2017-09-08] MEDS: PRENATAL VITAMINS W/ FOLIC ACID TABLET (FP) PO SCH (10:59)
== END 2017-09-08 11:45 | disposition home or self-care (01) | DRG 895 ==
LOC: YASAS 13:32 → Y5N 16:28
PROVIDERS: ADMIT Psychiatry & Neurology Psychiatry; ATTEND Psychiatry & Neurology Psychiatry
PROC: HZ42ZZZ Group Counseling for Substance Abuse Treatment, Cognitive-Behavioral (ICD-10-PCS; principal; 2017-09-06)
DX: F10.20 Alcohol dependence, uncomplicated (principal); F19.280 Other psychoactive substance dependence with psychoactive substance-induced anxiety disorder; F12.20 Cannabis dependence, uncomplicated; F17.210 Nicotine dependence, cigarettes, uncomplicated; M54.5 Low back pain; G89.29 Other chronic pain
CPT/HCPCS: 81003